=== PATIENT | male | born 1995 | race Caucasian/White ===

== ENCOUNTER 2020-05-29 13:38 | Observation (INO) | payer BC, OTHER ==
[2020-05-29] MEDS ORDERED: Sodium Chloride 0.9% 1,000 ML IV ONE ×2 (13:51→16:25)
[2020-05-29] MEDS ORDERED: Sodium Chloride 0.9% 2.5 ML Syringe FLUSH PRN (13:51)
[2020-05-29] MEDS ORDERED: Sodium Chloride 0.9% 10 ML Syringe FLUSH PRN (13:51)
--- NOTE | 2020-05-29 13:53 | EDM.PDOC ---
ED HPI GENERAL MEDICAL PROBLEM - General Chief Complaint: Abdominal Pain Stated Complaint: SHARP ABDOMINAL PAIN Time Seen by Provider: 05/29/20 13:48 Source of Information: Reports: Patient History Limitations: Reports: No Limitations - History of Present Illness INITIAL COMMENTS - FREE TEXT/NARRATIVE: HISTORY AND PHYSICAL: History of present illness: Patient is a 25-year-old male who presents to the emergency room with complaints of epigastric pain, bilateral flank pain, nausea and vomiting x 2 days. He states that his urine looks very dark in color and is concerned he is dehydrated due to the nausea and vomiting. Describes the epigastric pain as a sharp gnawing sensation which "if I had an ulcer this is what I think it would feel like". Patient denies any fever, chills, headache, change in vision, syncope or near syncope. Denies any chest pain, back pain, shortness of breath or cough. Denies any abdominal pain, nausea, vomiting, diarrhea, constipation or dysuria. Has not noted any blood in urine or stool. Patient has been eating and drinking appropriately. Review of systems: As per history of present illness and below otherwise all systems reviewed and negative. Past medical history: As per history of present illness and as reviewed below otherwise noncontributory. Surgical history: As per history of present illness and as reviewed below otherwise noncontributory. Social history: See social history for further information Family history: As per history of present illness and as reviewed below otherwise noncontributory. Physical exam: General: Well developed and well nourished. Alert and orientated x 3. Nontoxic in appearance and in no acute distress. Vital signs are stable and have been reviewed by me. Nursing notes were reviewed. HEENT: Atraumatic, normocephalic, pupils equal and reactive bilaterally, negative for conjunctival pallor or scleral icterus, mucous membranes moist, TMs normal bilaterally, throat clear, neck supple, nontender, trachea midline. No drooling or trismus noted. No meningeal signs. No hot potato voice noted. Lungs: Clear to auscultation, breath sounds equal bilaterally, chest nontender. Normal work of breathing, no accessory muscles used. Heart: S1S2, regular rate and rhythm without overt murmur Abdomen: Soft, nondistended, epigastric tenderness. Negative for masses or hepatosplenomegaly. Negative for costovertebral tenderness. Skin: Intact, warm, dry. No lesions or rashes noted. Hematologic: No petechiae or purpra. Mucosa appropriate color and normal nail bed color and refill. Extremities: Atraumatic, moves all extremities per self without difficulty or deficits, negative for cords or calf pain. Neurovascular unremarkable. Neuro: Awake, alert, oriented. Cranial nerves II through XII unremarkable. Cerebellum unremarkable. Motor and sensory unremarkable throughout. Exam nonfocal. Psychiatric: Mood and affect are appropriate. Normal thought process. Answering questions appropriately. Notes: Patient does have an elevated lipase and slight leukocytosis. CT of the abdomen and pelvis has been ordered, patient is aware and agreeable. He states he does have nausea and abdominal pain after the medications. We will give him some additional pain medication and fluids. CT shows stranding and edema adjacent to the pancreatic head and duodenum with mild duodenal wall thickening, which could represent pancreatitis with secondary duodenal and periduodenal inflammatory changes or primary duodenitis. Hepatic stenosis is noted. I have spoken with the patient/caregiver and discussed michelle rangel's findings, in addition to providing specific details for plan of care. Reassessment at the time of disposition demonstrates that the patient is in no acute distress, although he states he doesn't feel much better. Initially patient states he would like to be discharged home even though he is not feeling much better, I was able to talk him into staying for further care and management. Dr Jessica, hospitalist was consulted on this case. Agreed to monitor this patient for further care and management. VSS. Admission COVID pending. Diagnostics: CBC, CMP, Lipase, UA, CT abd/pelvis, COVID Therapeutics: IV fluids, Pepcid, GI cocktail, Dilaudid Impression: Pancreatitis, secondary duodenal and periduodenal inflammatory changes Plan: Observation admission to med/surg Definitive disposition and diagnosis as appropriate pending reevaluation and review of above. abd Pain Score (Numeric/FACES): 6 - Related Data Allergies Allergy/AdvReac Type Severity Reaction Status Date / Time No Known Allergies Allergy Verified 05/29/20 13:57 Home Meds: Home Meds Amphetamine/Dextroamphetamine [Adderall] 1 tab PO DAILY 05/29/20 [History] Omeprazole 20 mg PO DAILY 30 Days #30 tablet. 05/29/20 [Rx] Ondansetron [Zofran ODT] 4 mg PO Q6H PRN #8 tab.dis 05/29/20 [Rx] ED ROS GENERAL - Review of Systems Review Of Systems: Comprehensive ROS is negative, except as noted in HPI. ED EXAM, GI/ABD - Physical Exam Exam: See Below (See dictation) Course - Vital Signs Last Recorded V/S: Last Vital Signs Temp 95.0 F L 05/29/20 13:55 Pulse 101 H 05/29/20 16:11 Resp 16 05/29/20 16:11 BP 149/94 H 05/29/20 16:11 Pulse Ox 97 05/29/20 16:11 - Orders/Labs/Meds Orders: Active Orders 24 hr Category Date Time Status Admission Status [Patient Status] [ADT] Stat ADT 05/29/20 17:27 Active CORONAVIRUS COVID-19 PCR PHL Stat Lab 05/29/20 17:27 Ordered CULTURE URINE [RM] Stat Lab 05/29/20 13:50 Received LACTATE WITH REFLEX [BG] Stat Lab 05/29/20 17:26 Ordered Sodium Chloride 0.9% [Normal Saline] 1,000 ml Med 05/29/20 16:25 Active IV STAT Sodium Chloride 0.9% [Saline Flush] Med 05/29/20 13:51 Active 10 ml FLUSH ASDIRECTED PRN Sodium Chloride 0.9% [Saline Flush] Med 05/29/20 13:51 Active 2.5 ml FLUSH ASDIRECTED PRN Saline Lock Insert [OM.PC] Stat Oth 05/29/20 13:51 Ordered Medication Orders Sodium Chloride (Normal Saline) 1,000 mls @ 150 mls/hr IV STAT ONE Stop: 05/29/20 23:04 Sodium Chloride (Saline Flush) 10 ml FLUSH ASDIRECTED PRN PRN Reason: Keep Vein Open Last Admin: 05/29/20 14:55 Dose: 10 ml Documented by: [id number] Sodium Chloride (Saline Flush) 2.5 ml FLUSH ASDIRECTED PRN PRN Reason: Keep Vein Open Last Admin: 05/29/20 14:55 Dose: 2.5 ml Documented by: [email or web address] Labs: Laboratory Tests 05/29/20 05/29/20 05/29/20 Range/Units 13:50 14:45 14:45 WBC 12.71 H (4.0-11.0) K/uL RBC 5.96 H (4.50-5.90) M/uL Hgb 19.9 H (13.0-17.0) g/dL Hct 56.1 H (38.0-50.0) % MCV 94.1 (80.0-98.0) fL MCH 33.4 H (27.0-32.0) pg MCHC 35.5 (31.0-37.0) g/dL RDW Std Deviation 43.4 (28.0-62.0) fl RDW Coeff of Michael 13 (11.0-15.0) % Plt Count 148 L (150-400) K/uL MPV 11.80 (7.40-12.00) fL Neut % (Auto) 79.6 (48.0-80.0) % Lymph % (Auto) 12.7 L (16.0-40.0) % [place] % (Auto) 7.2 (0.0-15.0) % Eos % (Auto) 0.3 (0.0-7.0) % Baso % (Auto) 0.2 (0.0-1.5) % Neut # (Auto) 10.1 H (1.4-5.7) K/uL Lymph # (Auto) 1.6 (0.6-2.4) K/uL [place] # (Auto) 0.9 H (0.0-0.8) K/uL Eos # (Auto) 0.0 (0.0-0.7) K/uL Baso # (Auto) 0.0 (0.0-0.1) K/uL Nucleated RBC % 0.0 /100WBC Nucleated RBCs # 0 K/uL Sodium 135 L (136-148) mmol/L Potassium 4.0 (3.5-5.1) mmol/L Chloride 95 L (98-107) mmol/L Carbon Dioxide 28.5 (21.0-32.0) mmol/L BUN 8 (7.0-18.0) mg/dL Creatinine 1.1 (0.8-1.3) mg/dL Est Cr Clr Drug Dosing 99.32 mL/min Estimated GFR (MDRD) > 60.0 ml/min Glucose 101 (74-106) mg/dL Calcium 10.3 H (8.5-10.1) mg/dL Total Bilirubin 0.8 (0.2-1.0) mg/dL AST 97 H (15-37) IU/L ALT 121 H (14-63) IU/L Alkaline Phosphatase 191 H (46-116) U/L Total Protein 9.3 H (6.4-8.2) g/dL Albumin 5.1 H (3.4-5.0) g/dL Globulin 4.2 H (2.6-4.0) g/dL Albumin/Globulin Ratio 1.2 (0.9-1.6) Lipase 990 H (73-393) U/L Urine Color YELLOW Urine Appearance CLEAR Urine pH 7.0 (5.0-8.0) Ur Specific [place] 1.025 (1.001-1.035) Urine Protein 100 H (NEGATIVE) mg/dL Urine Glucose (UA) NEGATIVE (NEGATIVE) mg/dL Urine Ketones NEGATIVE (NEGATIVE) mg/dL Urine Occult Blood NEGATIVE (NEGATIVE) Urine Nitrite POSITIVE H (NEGATIVE) Urine Bilirubin SMALL H (NEGATIVE) Urine Ictotest NEGATIVE Urine Urobilinogen 0.2 (<2.0) EU/dL Ur Leukocyte Esterase TRACE H (NEGATIVE) Urine RBC 0-2 (0-2/HPF) Urine WBC 0-2 (0-5/HPF) Ur Epithelial Cells FEW (NONE-FEW) Urine Bacteria FEW (NEGATIVE) Urine Mucus MODERATE (NONE-MOD) Meds: Medications Generic Name Dose Route Start Last Admin Trade Name Freq PRN Reason Stop Dose Admin Sodium Chloride 1,000 mls @ 150 mls/hr 05/29/20 16:25 Normal Saline IV 05/29/20 23:04 STAT ONE Sodium Chloride 10 ml 05/29/20 13:51 05/29/20 14:55 Saline Flush FLUSH 10 ml ASDIRECTED PRN Administration Keep Vein Open Sodium Chloride 2.5 ml 05/29/20 13:51 05/29/20 14:55 Saline Flush FLUSH 2.5 ml ASDIRECTED PRN Administration Keep Vein Open Discontinued Medications Generic Name Dose Route Start Last Admin Trade Name Freq PRN Reason Stop Dose Admin Al Hydroxide/Mg Hydroxide 15 0 ml 05/29/20 14:17 05/29/20 14:55 ml/ Metoclopramide HCl 5 mg/ PO 05/29/20 14:18 25 each Lidocaine HCl 5 ml ONETIME ONE Administration Famotidine 20 mg 05/29/20 14:18 05/29/20 14:55 Pepcid IVPUSH 05/29/20 14:19 20 mg ONETIME ONE Administration Hydromorphone HCl 1 mg 05/29/20 15:30 05/29/20 16:08 Dilaudid IVPUSH 05/29/20 15:31 1 mg ONETIME ONE Administration Sodium Chloride 1,000 mls @ 999 mls/hr 05/29/20 13:51 05/29/20 14:54 Normal Saline IV 05/29/20 14:51 999 mls/hr STAT ONE Administration Ceftriaxone Sodium/Dextrose 1 50 mls @ 100 mls/hr 05/29/20 15:51 05/29/20 16:08 gm/ Premix IV 05/29/20 16:20 100 mls/hr ONETIME ONE Administration Iodixanol 100 ml 05/29/20 15:40 05/29/20 15:42 Visipaque IVPUSH 05/29/20 15:41 100 ml ONETIME ONE Administration Departure - Departure Time of Disposition: 17:31 Disposition: Refer to Observation Clinical Impression: Pancreatitis Qualifiers: Chronicity: acute Pancreatitis type: unspecified pancreatitis type Acute pancreatitis complication: unspecified Qualified Code(s): K85.90 - Acute pancreatitis without necrosis or infection, unspecified - Discharge Information Prescriptions: Omeprazole 20 mg PO DAILY 30 Days #30 tablet. Ondansetron [Zofran ODT] 4 mg PO Q6H PRN #8 tab.dis PRN Reason: Nausea Referrals: PCP,None [Primary Care Provider] - Forms: ED Department Discharge Sepsis Event Note (ED) - Focused Exam Vital Signs: Vital Signs Temp Pulse Resp BP Pulse Ox 05/29/20 16:11 101 H 16 149/94 H 97 05/29/20 14:59 80 16 148/101 H 97 05/29/20 13:55 95.0 F L 110 H 16 157/100 H 97 - My Orders Last 24 Hours: My Active Orders 05/29/20 13:50 CULTURE URINE [RM] Stat 05/29/20 13:51 Sodium Chloride 0.9% [Saline Flush] 10 ml FLUSH ASDIRECTED PRN Sodium Chloride 0.9% [Saline Flush] 2.5 ml FLUSH ASDIRECTED PRN Saline Lock Insert [OM.PC] Stat 05/29/20 16:25 Sodium Chloride 0.9% [Normal Saline] 1,000 ml IV STAT 05/29/20 17:26 LACTATE WITH REFLEX [BG] Stat 05/29/20 17:27 Admission Status [Patient Status] [ADT] Stat CORONAVIRUS COVID-19 PCR PHL Stat - Assessment/Plan Last 24 Hours: My Active Orders 05/29/20 13:50 CULTURE URINE [RM] Stat 05/29/20 13:51 Sodium Chloride 0.9% [Saline Flush] 10 ml FLUSH ASDIRECTED PRN Sodium Chloride 0.9% [Saline Flush] 2.5 ml FLUSH ASDIRECTED PRN Saline Lock Insert [OM.PC] Stat 05/29/20 16:25 Sodium Chloride 0.9% [Normal Saline] 1,000 ml IV STAT 05/29/20 17:26 LACTATE WITH REFLEX [BG] Stat 05/29/20 17:27 Admission Status [Patient Status] [ADT] Stat CORONAVIRUS COVID-19 PCR PHL Stat
[2020-05-29] MEDS ORDERED: Alum Hydrox/Mag Hydrox/Simeth 15 ML, Metoclopramide 5 MG, Lidocaine 2% 5 ML PO ONE ×3 (14:17)
[2020-05-29] MEDS ORDERED: Famotidine 20 MG/2 ML SDV IVPUSH ONE (14:18)
[2020-05-29 15:23] LABS: BLOOD UREA NITROGEN,BUN 8 mg/dL (7.0-18.0); CARBON DIOXIDE,CO2 28.5 mmol/L (21.0-32.0); CHLORIDE,CL 95 mmol/L (98-107); GLUCOSE RANDOM 101 mg/dL (74-106); LIPASE 990 U/L (73-393); SODIUM,NA 135 mmol/L (136-148)
[2020-05-29] MEDS ORDERED: HYDROmorphone 1 MG/ML Syringe IVPUSH ONE (15:30)
[2020-05-29] MEDS ORDERED: cefTRIAXone 1 GM in Premix Bag 1 BAG IV ONE (15:51)
--- NOTE | 2020-05-29 17:20 | CT ---
INDICATION: Epigastric pain. Leukocytosis TECHNIQUE: CT abdomen and pelvis acquired with IV contrast. 100 mL of Isovue 370 administered. COMPARISON: None available FINDINGS: Lower chest: Unremarkable. Liver: Hepatic steatosis. Spleen: Unremarkable. Pancreas: Stranding adjacent to the pancreatic head. Gallbladder and bile ducts: A moderately distended gallbladder. No biliary dilatation. Adrenal glands: Unremarkable. Kidneys: Unremarkable. GI tract: Periduodenal stranding and edema with transverse duodenal wall thickening. No bowel obstruction. A normal appendix. No significant pericolonic changes. Vascular structures: Unremarkable. Lymph nodes: Unremarkable. Miscellaneous: Small fluid adjacent to the proximal duodenum. No free air. Pelvic Organs: Unremarkable. Bones: Bilateral L5 spondylolysis. IMPRESSION: Stranding and edema adjacent to the pancreatic head and duodenum with mild duodenal wall thickening, which could represent pancreatitis with secondary duodenal and periduodenal inflammatory changes, or primary duodenitis. Correlate clinically and with pancreatic enzymes. Hepatic steatosis. Please note that all CT scans at this facility use dose modulation, iterative reconstruction, and/or weight-based dosing when appropriate to reduce radiation dose to as low as reasonably achievable. Dictated by Romario Long MD @ May 29 2020 5:06PM Signed by Dr. Romario Long @ May 29 2020 5:19PM
[2020-05-29] MEDS ORDERED: Albuterol/Ipratropium 3.0-0.5 MG/3 ML Neb Soln NEB PRN (17:55)
[2020-05-29] MEDS ORDERED: Morphine 10 MG/ML Syringe IVPUSH PRN (17:55)
[2020-05-29] MEDS: Pantoprazole 40 MG in Sodium Chloride 0.9% 10 ML IV SCH (19:23)
--- NOTE | 2020-05-29 19:38 | PCM.HP.2 ---
H&P History of Present Illness - General Date of Service: 05/29/20 Admit Problem/Dx: Admission Diagnosis/Problem Admission Diagnosis/Problem Pancreatitis - History of Present Illness Initial Comments - Free Text/Narative: Patient is a 25-year-old male who presents to the emergency room with complaints of sharp epigastric pain, bilateral flank pain, nausea and vomiting x 2 days. Patient states he is visiting from [place] for a vacation, and has been dining out everyday last few days. States he has been drinking alcohol last few days more than usual. Otherwise he doesn't abuse alcohol. He also had vomiting ,,7 times, he vomited all the food he ate last night. Has been feeling very weak. Pain isnt improving. He states that his urine looks very dark in color and is concerned he is dehydrated due to the nausea and vomiting. Patient denies any fever, chills, headache, change in vision, syncope or near syncope. Denies any chest pain, back pain, shortness of breath or cough. Denies any abdominal pain, nausea, vomiting, diarrhea, constipation or dysuria. Has not noted any blood in urine or stool. Patient has been eating and drinking appropriately. Patient was found to have elevated lipase, CT abdomen was significant for periduodenal and pancreatic head stranding and edema. Gall bladder was moderately distended, but no biliary dilatation. Patient is being admitted for pancreatitis. abd Pain Score (Numeric/FACES): 6 - Related Data Allergies/Adverse Reactions: Allergies Allergy/AdvReac Type Severity Reaction Status Date / Time No Known Allergies Allergy Verified 05/29/20 20:28 Home Medications: Home Meds Amphetamine/Dextroamphetamine [Adderall] 1 tab PO DAILY 05/29/20 [History] Omeprazole 20 mg PO DAILY 30 Days #30 tablet. 05/29/20 [Rx] Ondansetron [Zofran ODT] 4 mg PO Q6H PRN #8 tab.dis 05/29/20 [Rx] Social & Family History - Family History Family Medical History: Noncontributory H&P Review of Systems - Review of Systems: Review Of Systems: See Below General: Reports: Weakness. Denies: Fever, Chills, Malaise Pulmonary: Denies: Shortness of Breath, Wheezing Cardiovascular: Denies: Chest Pain, Palpitations, Dyspnea on Exertion Gastrointestinal: Reports: Abdominal Pain, Anorexia, Decreased Appetite, Flatus, Nausea, Vomiting. Denies: Black Stool, Bloody Stool, Constipation, Diarrhea, Difficulty Swallowing, Distension, Hematemesis Genitourinary: Denies: Dysuria, Frequency, Burning Musculoskeletal: Denies: Neck Pain, Shoulder Pain, Arm Pain Skin: Denies: Cyanosis, Jaundice, Mottled Psychiatric: Denies: Confusion, Depression, Mood Lability Exam - Exam Exam: See Below - Vital Signs Vital Signs: Last Vital Signs Temp 35.0 C L 05/29/20 13:55 Pulse 103 H 05/29/20 17:52 Resp 18 05/29/20 17:52 BP 149/94 H 05/29/20 16:11 Pulse Ox 97 05/29/20 17:52 Weight: 83.461 kg - Exam Quality Assessment: No: Supplemental Oxygen General: Alert, Oriented Neck: Supple, Trachea Midline Lungs: Clear to Auscultation, Rhonchi Cardiovascular: Regular Rate, Regular Rhythm, Normal S1, Normal S2 GI/Abdominal Exam: Normal Bowel Sounds, Soft, Guarding, Tender. No: Non-Tender, Mass, Hepatomegaly, Splenomegaly - Patient Data Lab Results Last 24 hrs: Laboratory Results - last 24 hr 05/29/20 05/29/20 05/29/20 Range/Units 13:50 14:45 14:45 WBC 12.71 H (4.0-11.0) K/uL RBC 5.96 H (4.50-5.90) M/uL Hgb 19.9 H (13.0-17.0) g/dL Hct 56.1 H (38.0-50.0) % MCV 94.1 (80.0-98.0) fL MCH 33.4 H (27.0-32.0) pg MCHC 35.5 (31.0-37.0) g/dL RDW Std Deviation 43.4 (28.0-62.0) fl RDW Coeff of Michael 13 (11.0-15.0) % Plt Count 148 L (150-400) K/uL MPV 11.80 (7.40-12.00) fL Neut % (Auto) 79.6 (48.0-80.0) % Lymph % (Auto) 12.7 L (16.0-40.0) % [place] % (Auto) 7.2 (0.0-15.0) % Eos % (Auto) 0.3 (0.0-7.0) % Baso % (Auto) 0.2 (0.0-1.5) % Neut # (Auto) 10.1 H (1.4-5.7) K/uL Lymph # (Auto) 1.6 (0.6-2.4) K/uL [place] # (Auto) 0.9 H (0.0-0.8) K/uL Eos # (Auto) 0.0 (0.0-0.7) K/uL Baso # (Auto) 0.0 (0.0-0.1) K/uL Nucleated RBC % 0.0 /100WBC Nucleated RBCs # 0 K/uL Lactate (0.20-2.00) mmol/L Sodium 135 L (136-148) mmol/L Potassium 4.0 (3.5-5.1) mmol/L Chloride 95 L (98-107) mmol/L Carbon Dioxide 28.5 (21.0-32.0) mmol/L BUN 8 (7.0-18.0) mg/dL Creatinine 1.1 (0.8-1.3) mg/dL Est Cr Clr Drug Dosing 99.32 mL/min Estimated GFR (MDRD) > 60.0 ml/min Glucose 101 (74-106) mg/dL Calcium 10.3 H (8.5-10.1) mg/dL Total Bilirubin 0.8 (0.2-1.0) mg/dL AST 97 H (15-37) IU/L ALT 121 H (14-63) IU/L Alkaline Phosphatase 191 H (46-116) U/L Total Protein 9.3 H (6.4-8.2) g/dL Albumin 5.1 H (3.4-5.0) g/dL Globulin 4.2 H (2.6-4.0) g/dL Albumin/Globulin Ratio 1.2 (0.9-1.6) Lipase 990 H (73-393) U/L Urine Color YELLOW Urine Appearance CLEAR Urine pH 7.0 (5.0-8.0) Ur Specific [place] 1.025 (1.001-1.035) Urine Protein 100 H (NEGATIVE) mg/dL Urine Glucose (UA) NEGATIVE (NEGATIVE) mg/dL Urine Ketones NEGATIVE (NEGATIVE) mg/dL Urine Occult Blood NEGATIVE (NEGATIVE) Urine Nitrite POSITIVE H (NEGATIVE) Urine Bilirubin SMALL H (NEGATIVE) Urine Ictotest NEGATIVE Urine Urobilinogen 0.2 (<2.0) EU/dL Ur Leukocyte Esterase TRACE H (NEGATIVE) Urine RBC 0-2 (0-2/HPF) Urine WBC 0-2 (0-5/HPF) Ur Epithelial Cells FEW (NONE-FEW) Urine Bacteria FEW (NEGATIVE) Urine Mucus MODERATE (NONE-MOD) SARS-CoV-2 RNA (JED) (NEGATIVE) 05/29/20 05/29/20 Range/Units 17:43 17:45 WBC (4.0-11.0) K/uL RBC (4.50-5.90) M/uL Hgb (13.0-17.0) g/dL Hct (38.0-50.0) % MCV (80.0-98.0) fL MCH (27.0-32.0) pg MCHC (31.0-37.0) g/dL RDW Std Deviation (28.0-62.0) fl RDW Coeff of Michael (11.0-15.0) % Plt Count (150-400) K/uL MPV (7.40-12.00) fL Neut % (Auto) (48.0-80.0) % Lymph % (Auto) (16.0-40.0) % [place] % (Auto) (0.0-15.0) % Eos % (Auto) (0.0-7.0) % Baso % (Auto) (0.0-1.5) % Neut # (Auto) (1.4-5.7) K/uL Lymph # (Auto) (0.6-2.4) K/uL [place] # (Auto) (0.0-0.8) K/uL Eos # (Auto) (0.0-0.7) K/uL Baso # (Auto) (0.0-0.1) K/uL Nucleated RBC % /100WBC Nucleated RBCs # K/uL Lactate 1.2 (0.20-2.00) mmol/L Sodium (136-148) mmol/L Potassium (3.5-5.1) mmol/L Chloride (98-107) mmol/L Carbon Dioxide (21.0-32.0) mmol/L BUN (7.0-18.0) mg/dL Creatinine (0.8-1.3) mg/dL Est Cr Clr Drug Dosing mL/min Estimated GFR (MDRD) ml/min Glucose (74-106) mg/dL Calcium (8.5-10.1) mg/dL Total Bilirubin (0.2-1.0) mg/dL AST (15-37) IU/L ALT (14-63) IU/L Alkaline Phosphatase (46-116) U/L Total Protein (6.4-8.2) g/dL Albumin (3.4-5.0) g/dL Globulin (2.6-4.0) g/dL Albumin/Globulin Ratio (0.9-1.6) Lipase (73-393) U/L Urine Color Urine Appearance Urine pH (5.0-8.0) Ur Specific [place] (1.001-1.035) Urine Protein (NEGATIVE) mg/dL Urine Glucose (UA) (NEGATIVE) mg/dL Urine Ketones (NEGATIVE) mg/dL Urine Occult Blood (NEGATIVE) Urine Nitrite (NEGATIVE) Urine Bilirubin (NEGATIVE) Urine Ictotest Urine Urobilinogen (<2.0) EU/dL Ur Leukocyte Esterase (NEGATIVE) Urine RBC (0-2/HPF) Urine WBC (0-5/HPF) Ur Epithelial Cells (NONE-FEW) Urine Bacteria (NEGATIVE) Urine Mucus (NONE-MOD) SARS-CoV-2 RNA (JED) NEGATIVE (NEGATIVE) Result Diagrams: 05/29/20 14:45 05/29/20 14:45 Sepsis Event Note - Evaluation Sepsis Screening Result: No Definite Risk - Focused Exam Vital Signs: Vital Signs Temp Pulse Resp BP Pulse Ox 05/29/20 17:52 103 H 18 97 05/29/20 16:11 101 H 16 149/94 H 97 05/29/20 14:59 80 16 148/101 H 97 05/29/20 13:55 35.0 C L 110 H 16 157/100 H 97 - Problem List (1) Pancreatitis SNOMED Code(s): 60400864 ICD Code: K85.90 - ACUTE PANCREATITIS WITHOUT NECROSIS OR INFECTION, UNSP Status: Acute Current Visit: Yes Qualifiers: Chronicity: acute Pancreatitis type: unspecified pancreatitis type Acute pancreatitis complication: unspecified Qualified Code(s): K85.90 - Acute pancreatitis without necrosis or infection, unspecified (2) Transaminitis SNOMED Code(s): 668618690, 798076491 ICD Code: R74.01 - ELEVATION OF LEVELS OF LIVER TRANSAMINASE LEVELS Status: Acute Current Visit: Yes Problem List Initiated/Reviewed/Updated: Yes Orders Last 24hrs: Active Orders 24 hr Category Date Time Status Admission Status [Patient Status] [ADT] Stat ADT 05/29/20 17:27 Active Ambulate [RC] ASDIRECTED Care 05/29/20 17:55 Active Antiembolic Devices [RC] PER UNIT ROUTINE Care 05/29/20 17:57 Active Blood Glucose Check, Bedside [RC] Q6H Care 05/29/20 17:55 Active Oxygen Therapy [RC] PRN Care 05/29/20 17:55 Active Pulse Oximetry [RC] PRN Care 05/29/20 17:56 Active RT Aerosol Therapy [RC] ASDIRECTED Care 05/29/20 17:58 Active VTE/DVT Education [RC] PER UNIT ROUTINE Care 05/29/20 17:55 Active Vital Signs [RC] Q4H Care 05/29/20 17:55 Active Nothing per Oral Now Diet [DIET] Diet 05/29/20 Dinner Active CBC WITH AUTO DIFF [HEME] AM Lab 05/30/20 05:11 Ordered CMP [COMPREHENSIVE METABOLIC PN,CMP] [CHEM] AM Lab 05/30/20 05:11 Ordered CULTURE URINE [RM] Stat Lab 05/29/20 13:50 Received HEPATITIS PANEL ACUTE [CHEM] AM Lab 05/31/20 05:11 Ordered MAGNESIUM [CHEM] AM Lab 05/30/20 05:11 Ordered PHOSPHORUS [CHEM] AM Lab 05/30/20 05:11 Ordered Albuterol/Ipratropium [DuoNeb 3.0-0.5 MG/3 ML] Med 05/29/20 17:55 Active 3 ml NEB Q4HRRT PRN Lactated Ringers [Ringers, Lactated] 1,000 ml Med 05/29/20 18:00 Active IV ASDIRECTED Morphine Med 05/29/20 17:55 Active 2 mg IVPUSH Q4H PRN Ondansetron [Zofran] Med 05/29/20 17:55 Active 4 mg IVPUSH Q4H PRN Pantoprazole [ProTONIX IV] 40 mg Med 05/29/20 18:00 Active Sodium Chloride 0.9% [Normal Saline] 10 ml IV DAILY Sodium Chloride 0.9% [Normal Saline] 1,000 ml Med 05/29/20 16:25 Active IV STAT Sodium Chloride 0.9% [Saline Flush] Med 05/29/20 13:51 Active 10 ml FLUSH ASDIRECTED PRN Sodium Chloride 0.9% [Saline Flush] Med 05/29/20 13:51 Active 2.5 ml FLUSH ASDIRECTED PRN cefTRIAXone [Rocephin] 1 gm Med 05/30/20 09:00 Active Sodium Chloride 0.9% [Normal Saline] 50 ml IV Q24H Saline Lock Insert [OM.PC] Stat Oth 05/29/20 13:51 Ordered Sequential Compression Device [OM.PC] Per Unit Routine Oth 05/29/20 17:56 Ordered Resuscitation Status Routine Resus Stat 05/29/20 17:55 Ordered Medication Orders Albuterol/Ipratropium (Duoneb 3.0-0.5 Mg/3 Ml) 3 ml NEB Q4HRRT PRN PRN Reason: Shortness Of Breath/wheezing Sodium Chloride (Normal Saline) 1,000 mls @ 150 mls/hr IV STAT ONE Stop: 05/29/20 23:04 Last Admin: 05/29/20 17:29 Dose: 150 mls/hr Documented by: PENG Lactated Ringer's (Ringers, Lactated) 1,000 mls @ 125 mls/hr IV ASDIRECTED TAMIE Pantoprazole Sodium 40 mg/ (Sodium Chloride) 10 mls @ 300 mls/hr IV DAILY TAMIE Last Admin: 05/29/20 19:23 Dose: 300 mls/hr Documented by: CARLITO Ceftriaxone Sodium 1 gm/ (Sodium Chloride) 50 mls @ 100 mls/hr IV Q24H TAMIE Morphine Sulfate (Morphine) 2 mg IVPUSH Q4H PRN PRN Reason: Pain (severe 7-10) Stop: 05/30/20 17:57 Last Admin: 05/29/20 19:31 Dose: 2 mg Documented by: CARLITO Ondansetron HCl (Zofran) 4 mg IVPUSH Q4H PRN PRN Reason: Nausea/Vomiting Sodium Chloride (Saline Flush) 10 ml FLUSH ASDIRECTED PRN PRN Reason: Keep Vein Open Last Admin: 05/29/20 14:55 Dose: 10 ml Documented by: SHARATH Sodium Chloride (Saline Flush) 2.5 ml FLUSH ASDIRECTED PRN PRN Reason: Keep Vein Open Last Admin: 05/29/20 14:55 Dose: 2.5 ml Documented by: SHARATH Assessment/Plan Comment:: 25 y/o male admitted for pancreatitis, likely due to alcohol binging start IV fluids Keep NPO, advance diet as tolerated BS q6H Dilaudid for pain control IV ppi daily Patient counseled against alcohol binging Trend LFTs, transaminitis likely due to Vomiting USG liver
[2020-05-29] MEDS: HYDROmorphone 1 MG/ML Syringe IVPUSH PRN (20:50)
[2020-05-29] MEDS: Ondansetron 4 MG/2 ML SDV IVPUSH PRN (21:25)
[2020-05-29] MEDS ORDERED: 50% Dextrose in Water 50 ML Syringe IVPUSH PRN (23:29)
[2020-05-30] MEDS: Lactated Ringers 1,000 ML IV SCH ×2 (00:29→09:34)
[2020-05-30] MEDS: HYDROmorphone 1 MG/ML Syringe IVPUSH PRN ×3 (01:15→09:40)
[2020-05-30 06:23] LABS: BLOOD UREA NITROGEN,BUN 8 mg/dL (7.0-18.0); CARBON DIOXIDE,CO2 27.4 mmol/L (21.0-32.0); CHLORIDE,CL 100 mmol/L (98-107); GLUCOSE RANDOM 84 mg/dL (74-106); LIPASE 836 U/L (73-393); POTASSIUM,K 3.7 mmol/L (3.5-5.1); SODIUM,NA 136 mmol/L (136-148)
[2020-05-30] MEDS ORDERED: cefTRIAXone 1 GM in Premix Bag 1 BAG IV SCH (09:00)
[2020-05-30] MEDS ORDERED: cefTRIAXone 1 GM in Sodium Chloride 0.9% 50 ML IV SCH (09:00)
[2020-05-30] MEDS: Pantoprazole 40 MG in Sodium Chloride 0.9% 10 ML IV SCH (09:04)
[2020-05-30] MEDS: Ondansetron 4 MG/2 ML SDV IVPUSH PRN (09:40)
--- NOTE | 2020-05-30 09:59 | US ---
INDICATION: Pancreatitis. COMPARISON: CT scan of the abdomen and pelvis dated 29 May 2020. FINDINGS: An abdominal ultrasound shows mild diffuse increased echogenicity of the liver. Normal liver size and contour. No focal liver lesions identified. No bile duct dilation with the common bile duct measuring 3 mm. Normal appearance of the gallbladder. No gallstones. Negative sonographic Wood sign. No abnormalities identified in the visualized portions of the pancreatic head and body, aorta, and right kidney. No right-sided hydronephrosis. IMPRESSION: 1. No gallstones. No bile duct dilation. 2. Probable diffuse fatty infiltration of the liver. Dictated by Johnny Meraz MD @ May 30 2020 9:54AM Signed by Dr. Johnny Meraz @ May 30 2020 9:58AM
[2020-05-30] MEDS ORDERED: Ketorolac 10 MG Tab PO PRN (11:02)
[2020-05-30] MEDS ORDERED: HYDROmorphone 1 MG/ML Syringe IVPUSH PRN (11:03)
--- NOTE | 2020-05-30 11:09 | PCM.PN ---
- General Info Date of Service: 05/30/20 Admission Dx/Problem (Free Text): Admission Diagnosis/Problem Admission Diagnosis/Problem Pancreatitis Subjective Update: feels much better, is hungry, wants to eat , requesting to be discharged today Functional Status: Reports: Pain Controlled - Review of Systems General: Denies: Fever, Weakness, Fatigue Pulmonary: Denies: Shortness of Breath, Pleuritic Chest Pain Cardiovascular: Denies: Chest Pain, Palpitations, Dyspnea on Exertion Gastrointestinal: Reports: Abdominal Pain (improved). Denies: Decreased Appetite, Diarrhea, Nausea, Vomiting Genitourinary: Denies: Dysuria, Frequency, Burning Musculoskeletal: Denies: Neck Pain, Shoulder Pain, Arm Pain Skin: Denies: Cyanosis, Jaundice, Mottled Neurological: Denies: Confusion, Dizziness, Headache - Patient Data Vitals - Most Recent: Last Vital Signs Temp 36.2 C 05/30/20 08:00 Pulse 77 05/30/20 08:00 Resp 16 05/30/20 08:00 BP 142/82 H 05/30/20 08:00 Pulse Ox 98 05/30/20 08:00 Weight - Most Recent: 83.461 kg I&O - Last 24 Hours: Intake & Output 05/29/20 05/30/20 05/30/20 22:59 06:59 14:59 Intake Total 1649 Output Total 200 Balance 1449 Lab Results Last 24 Hours: Laboratory Results - last 24 hr 05/29/20 05/29/20 05/29/20 Range/Units 13:50 14:45 14:45 WBC 12.71 H (4.0-11.0) K/uL RBC 5.96 H (4.50-5.90) M/uL Hgb 19.9 H (13.0-17.0) g/dL Hct 56.1 H (38.0-50.0) % MCV 94.1 (80.0-98.0) fL MCH 33.4 H (27.0-32.0) pg MCHC 35.5 (31.0-37.0) g/dL RDW Std Deviation 43.4 (28.0-62.0) fl RDW Coeff of Michael 13 (11.0-15.0) % Plt Count 148 L (150-400) K/uL MPV 11.80 (7.40-12.00) fL Neut % (Auto) 79.6 (48.0-80.0) % Lymph % (Auto) 12.7 L (16.0-40.0) % [place] % (Auto) 7.2 (0.0-15.0) % Eos % (Auto) 0.3 (0.0-7.0) % Baso % (Auto) 0.2 (0.0-1.5) % Neut # (Auto) 10.1 H (1.4-5.7) K/uL Lymph # (Auto) 1.6 (0.6-2.4) K/uL [place] # (Auto) 0.9 H (0.0-0.8) K/uL Eos # (Auto) 0.0 (0.0-0.7) K/uL Baso # (Auto) 0.0 (0.0-0.1) K/uL Nucleated RBC % 0.0 /100WBC Nucleated RBCs # 0 K/uL Lactate (0.20-2.00) mmol/L Sodium 135 L (136-148) mmol/L Potassium 4.0 (3.5-5.1) mmol/L Chloride 95 L (98-107) mmol/L Carbon Dioxide 28.5 (21.0-32.0) mmol/L BUN 8 (7.0-18.0) mg/dL Creatinine 1.1 (0.8-1.3) mg/dL Est Cr Clr Drug Dosing 99.32 mL/min Estimated GFR (MDRD) > 60.0 ml/min Glucose 101 (74-106) mg/dL POC Glucose (60-110) mg/dL Calcium 10.3 H (8.5-10.1) mg/dL Phosphorus (2.6-4.7) mg/dL Magnesium (1.8-2.4) mg/dL Total Bilirubin 0.8 (0.2-1.0) mg/dL AST 97 H (15-37) IU/L ALT 121 H (14-63) IU/L Alkaline Phosphatase 191 H (46-116) U/L Total Protein 9.3 H (6.4-8.2) g/dL Albumin 5.1 H (3.4-5.0) g/dL Globulin 4.2 H (2.6-4.0) g/dL Albumin/Globulin Ratio 1.2 (0.9-1.6) Lipase 990 H (73-393) U/L Urine Color YELLOW Urine Appearance CLEAR Urine pH 7.0 (5.0-8.0) Ur Specific [place] 1.025 (1.001-1.035) Urine Protein 100 H (NEGATIVE) mg/dL Urine Glucose (UA) NEGATIVE (NEGATIVE) mg/dL Urine Ketones NEGATIVE (NEGATIVE) mg/dL Urine Occult Blood NEGATIVE (NEGATIVE) Urine Nitrite POSITIVE H (NEGATIVE) Urine Bilirubin SMALL H (NEGATIVE) Urine Ictotest NEGATIVE Urine Urobilinogen 0.2 (<2.0) EU/dL Ur Leukocyte Esterase TRACE H (NEGATIVE) Urine RBC 0-2 (0-2/HPF) Urine WBC 0-2 (0-5/HPF) Ur Epithelial Cells FEW (NONE-FEW) Urine Bacteria FEW (NEGATIVE) Urine Mucus MODERATE (NONE-MOD) SARS-CoV-2 RNA (JED) (NEGATIVE) 05/29/20 05/29/20 05/29/20 Range/Units 17:43 17:45 20:58 WBC (4.0-11.0) K/uL RBC (4.50-5.90) M/uL Hgb (13.0-17.0) g/dL Hct (38.0-50.0) % MCV (80.0-98.0) fL MCH (27.0-32.0) pg MCHC (31.0-37.0) g/dL RDW Std Deviation (28.0-62.0) fl RDW Coeff of Michael (11.0-15.0) % Plt Count (150-400) K/uL MPV (7.40-12.00) fL Neut % (Auto) (48.0-80.0) % Lymph % (Auto) (16.0-40.0) % [place] % (Auto) (0.0-15.0) % Eos % (Auto) (0.0-7.0) % Baso % (Auto) (0.0-1.5) % Neut # (Auto) (1.4-5.7) K/uL Lymph # (Auto) (0.6-2.4) K/uL [place] # (Auto) (0.0-0.8) K/uL Eos # (Auto) (0.0-0.7) K/uL Baso # (Auto) (0.0-0.1) K/uL Nucleated RBC % /100WBC Nucleated RBCs # K/uL Lactate 1.2 (0.20-2.00) mmol/L Sodium (136-148) mmol/L Potassium (3.5-5.1) mmol/L Chloride (98-107) mmol/L Carbon Dioxide (21.0-32.0) mmol/L BUN (7.0-18.0) mg/dL Creatinine (0.8-1.3) mg/dL Est Cr Clr Drug Dosing mL/min Estimated GFR (MDRD) ml/min Glucose (74-106) mg/dL POC Glucose 82 (60-110) mg/dL Calcium (8.5-10.1) mg/dL Phosphorus (2.6-4.7) mg/dL Magnesium (1.8-2.4) mg/dL Total Bilirubin (0.2-1.0) mg/dL AST (15-37) IU/L ALT (14-63) IU/L Alkaline Phosphatase (46-116) U/L Total Protein (6.4-8.2) g/dL Albumin (3.4-5.0) g/dL Globulin (2.6-4.0) g/dL Albumin/Globulin Ratio (0.9-1.6) Lipase (73-393) U/L Urine Color Urine Appearance Urine pH (5.0-8.0) Ur Specific [place] (1.001-1.035) Urine Protein (NEGATIVE) mg/dL Urine Glucose (UA) (NEGATIVE) mg/dL Urine Ketones (NEGATIVE) mg/dL Urine Occult Blood (NEGATIVE) Urine Nitrite (NEGATIVE) Urine Bilirubin (NEGATIVE) Urine Ictotest Urine Urobilinogen (<2.0) EU/dL Ur Leukocyte Esterase (NEGATIVE) Urine RBC (0-2/HPF) Urine WBC (0-5/HPF) Ur Epithelial Cells (NONE-FEW) Urine Bacteria (NEGATIVE) Urine Mucus (NONE-MOD) SARS-CoV-2 RNA (JED) NEGATIVE (NEGATIVE) 05/30/20 05/30/20 05/30/20 Range/Units 03:33 04:23 05:21 WBC 7.18 (4.0-11.0) K/uL RBC 5.06 (4.50-5.90) M/uL Hgb 16.4 (13.0-17.0) g/dL Hct 47.8 (38.0-50.0) % MCV 94.5 (80.0-98.0) fL MCH 32.4 H (27.0-32.0) pg MCHC 34.3 (31.0-37.0) g/dL RDW Std Deviation 43.5 (28.0-62.0) fl RDW Coeff of Michael 13 (11.0-15.0) % Plt Count 118 L (150-400) K/uL MPV 11.70 (7.40-12.00) fL Neut % (Auto) 65.2 (48.0-80.0) % Lymph % (Auto) 24.8 (16.0-40.0) % [place] % (Auto) 8.5 (0.0-15.0) % Eos % (Auto) 1.4 (0.0-7.0) % Baso % (Auto) 0.1 (0.0-1.5) % Neut # (Auto) 4.7 (1.4-5.7) K/uL Lymph # (Auto) 1.8 (0.6-2.4) K/uL [place] # (Auto) 0.6 (0.0-0.8) K/uL Eos # (Auto) 0.1 (0.0-0.7) K/uL Baso # (Auto) 0.0 (0.0-0.1) K/uL Nucleated RBC % 0.0 /100WBC Nucleated RBCs # 0 K/uL Lactate (0.20-2.00) mmol/L Sodium (136-148) mmol/L Potassium (3.5-5.1) mmol/L Chloride (98-107) mmol/L Carbon Dioxide (21.0-32.0) mmol/L BUN (7.0-18.0) mg/dL Creatinine (0.8-1.3) mg/dL Est Cr Clr Drug Dosing mL/min Estimated GFR (MDRD) ml/min Glucose (74-106) mg/dL POC Glucose 77 122 H (60-110) mg/dL Calcium (8.5-10.1) mg/dL Phosphorus (2.6-4.7) mg/dL Magnesium (1.8-2.4) mg/dL Total Bilirubin (0.2-1.0) mg/dL AST (15-37) IU/L ALT (14-63) IU/L Alkaline Phosphatase (46-116) U/L Total Protein (6.4-8.2) g/dL Albumin (3.4-5.0) g/dL Globulin (2.6-4.0) g/dL Albumin/Globulin Ratio (0.9-1.6) Lipase (73-393) U/L Urine Color Urine Appearance Urine pH (5.0-8.0) Ur Specific [place] (1.001-1.035) Urine Protein (NEGATIVE) mg/dL Urine Glucose (UA) (NEGATIVE) mg/dL Urine Ketones (NEGATIVE) mg/dL Urine Occult Blood (NEGATIVE) Urine Nitrite (NEGATIVE) Urine Bilirubin (NEGATIVE) Urine Ictotest Urine Urobilinogen (<2.0) EU/dL Ur Leukocyte Esterase (NEGATIVE) Urine RBC (0-2/HPF) Urine WBC (0-5/HPF) Ur Epithelial Cells (NONE-FEW) Urine Bacteria (NEGATIVE) Urine Mucus (NONE-MOD) SARS-CoV-2 RNA (JED) (NEGATIVE) 05/30/20 05/30/20 Range/Units 05:21 09:28 WBC (4.0-11.0) K/uL RBC (4.50-5.90) M/uL Hgb (13.0-17.0) g/dL Hct (38.0-50.0) % MCV (80.0-98.0) fL MCH (27.0-32.0) pg MCHC (31.0-37.0) g/dL RDW Std Deviation (28.0-62.0) fl RDW Coeff of Michael (11.0-15.0) % Plt Count (150-400) K/uL MPV (7.40-12.00) fL Neut % (Auto) (48.0-80.0) % Lymph % (Auto) (16.0-40.0) % [place] % (Auto) (0.0-15.0) % Eos % (Auto) (0.0-7.0) % Baso % (Auto) (0.0-1.5) % Neut # (Auto) (1.4-5.7) K/uL Lymph # (Auto) (0.6-2.4) K/uL [place] # (Auto) (0.0-0.8) K/uL Eos # (Auto) (0.0-0.7) K/uL Baso # (Auto) (0.0-0.1) K/uL Nucleated RBC % /100WBC Nucleated RBCs # K/uL Lactate (0.20-2.00) mmol/L Sodium 136 (136-148) mmol/L Potassium 3.7 (3.5-5.1) mmol/L Chloride 100 (98-107) mmol/L Carbon Dioxide 27.4 (21.0-32.0) mmol/L BUN 8 (7.0-18.0) mg/dL Creatinine 1.0 (0.8-1.3) mg/dL Est Cr Clr Drug Dosing 109.65 mL/min Estimated GFR (MDRD) > 60.0 ml/min Glucose 84 (74-106) mg/dL POC Glucose 80 (60-110) mg/dL Calcium 9.2 (8.5-10.1) mg/dL Phosphorus 2.8 (2.6-4.7) mg/dL Magnesium 1.9 (1.8-2.4) mg/dL Total Bilirubin 0.8 (0.2-1.0) mg/dL AST 44 H (15-37) IU/L ALT 76 H (14-63) IU/L Alkaline Phosphatase 150 H (46-116) U/L Total Protein 7.2 (6.4-8.2) g/dL Albumin 4.0 (3.4-5.0) g/dL Globulin 3.2 (2.6-4.0) g/dL Albumin/Globulin Ratio 1.3 (0.9-1.6) Lipase 836 H (73-393) U/L Urine Color Urine Appearance Urine pH (5.0-8.0) Ur Specific [place] (1.001-1.035) Urine Protein (NEGATIVE) mg/dL Urine Glucose (UA) (NEGATIVE) mg/dL Urine Ketones (NEGATIVE) mg/dL Urine Occult Blood (NEGATIVE) Urine Nitrite (NEGATIVE) Urine Bilirubin (NEGATIVE) Urine Ictotest Urine Urobilinogen (<2.0) EU/dL Ur Leukocyte Esterase (NEGATIVE) Urine RBC (0-2/HPF) Urine WBC (0-5/HPF) Ur Epithelial Cells (NONE-FEW) Urine Bacteria (NEGATIVE) Urine Mucus (NONE-MOD) SARS-CoV-2 RNA (JED) (NEGATIVE) Med Orders - Current: Current Medications Albuterol/Ipratropium (Duoneb 3.0-0.5 Mg/3 Ml) 3 ml NEB Q4HRRT PRN PRN Reason: Shortness Of Breath/wheezing Dextrose/Water (Dextrose 50% In Water) 50 ml IVPUSH ONETIME PRN PRN Reason: Hypoglycemia Last Admin: 05/30/20 03:52 Dose: 50 ml Documented by: Hydromorphone HCl (Dilaudid) 1 mg IVPUSH Q6H PRN PRN Reason: Pain Lactated Ringer's (Ringers, Lactated) 1,000 mls @ 125 mls/hr IV ASDIRECTED [facility] Last Admin: 05/30/20 09:34 Dose: 125 mls/hr Documented by: Pantoprazole Sodium 40 mg/ (Sodium Chloride) 10 mls @ 300 mls/hr IV DAILY [facility] Last Admin: 05/30/20 09:04 Dose: 300 mls/hr Documented by: Ceftriaxone Sodium/Dextrose 1 (gm/ Premix) 50 mls @ 100 mls/hr IV Q24H TAMIE Last Admin: 05/30/20 09:04 Dose: 100 mls/hr Documented by: Ketorolac Tromethamine (Toradol) 10 mg PO Q6H PRN PRN Reason: Abdominal Pain Stop: 06/04/20 11:03 Non-Formulary Medication (Amphetamine/Dextroamphetamine [Adderall]) 1 tab PO DAILY [facility] Ondansetron HCl (Zofran) 4 mg IVPUSH Q4H PRN PRN Reason: Nausea/Vomiting Last Admin: 05/30/20 09:40 Dose: 4 mg Documented by: Sodium Chloride (Saline Flush) 10 ml FLUSH ASDIRECTED PRN PRN Reason: Keep Vein Open Last Admin: 05/29/20 14:55 Dose: 10 ml Documented by: Sodium Chloride (Saline Flush) 2.5 ml FLUSH ASDIRECTED PRN PRN Reason: Keep Vein Open Last Admin: 05/29/20 14:55 Dose: 2.5 ml Documented by: Discontinued Medications Al Hydroxide/Mg Hydroxide 15 ml/ Metoclopramide HCl 5 mg/Lidocaine HCl 5 ml 0 ml PO ONETIME ONE Stop: 05/29/20 14:18 Last Admin: 05/29/20 14:55 Dose: 25 each Documented by: Famotidine (Pepcid) 20 mg IVPUSH ONETIME ONE Stop: 05/29/20 14:19 Last Admin: 05/29/20 14:55 Dose: 20 mg Documented by: Hydromorphone HCl (Dilaudid) 1 mg IVPUSH ONETIME ONE Stop: 05/29/20 15:31 Last Admin: 05/29/20 16:08 Dose: 1 mg Documented by: Hydromorphone HCl (Dilaudid) 1 mg IVPUSH Q4H PRN PRN Reason: Pain Last Admin: 05/30/20 09:40 Dose: 1 mg Documented by: Sodium Chloride (Normal Saline) 1,000 mls @ 999 mls/hr IV STAT ONE Stop: 05/29/20 14:51 Last Admin: 05/29/20 14:54 Dose: 999 mls/hr Documented by: Ceftriaxone Sodium/Dextrose 1 (gm/ Premix) 50 mls @ 100 mls/hr IV ONETIME ONE Stop: 05/29/20 16:20 Last Admin: 05/29/20 16:08 Dose: 100 mls/hr Documented by: Sodium Chloride (Normal Saline) 1,000 mls @ 150 mls/hr IV STAT ONE Stop: 05/29/20 23:04 Last Admin: 05/29/20 17:29 Dose: 150 mls/hr Documented by: Ceftriaxone Sodium 1 gm/ (Sodium Chloride) 50 mls @ 100 mls/hr IV Q24H TAMIE Iodixanol (Visipaque) 100 ml IVPUSH ONETIME ONE Stop: 05/29/20 15:41 Last Admin: 05/29/20 15:42 Dose: 100 ml Documented by: Morphine Sulfate (Morphine) 2 mg IVPUSH Q4H PRN PRN Reason: Pain (severe 7-10) Stop: 05/30/20 17:57 Last Admin: 05/29/20 19:31 Dose: 2 mg Documented by: - Exam General: Alert, Oriented Neck: Supple, Trachea Midline Lungs: Clear to Auscultation, Normal Respiratory Effort GI/Abdominal Exam: Normal Bowel Sounds, Soft, Non-Tender Sepsis Event Note - Evaluation Sepsis Screening Result: No Definite Risk - Focused Exam Vital Signs: Vital Signs Temp Pulse Resp BP Pulse Ox 05/30/20 08:00 36.2 C 77 16 142/82 H 98 05/30/20 03:52 36.2 C 91 18 143/85 H 96 05/29/20 23:24 36.3 C 91 18 164/93 H 96 - Problem List & Annotations (1) Pancreatitis SNOMED Code(s): 04359545 Code(s): K85.90 - ACUTE PANCREATITIS WITHOUT NECROSIS OR INFECTION, UNSP Status: Acute Current Visit: Yes Qualifiers: Chronicity: acute Pancreatitis type: unspecified pancreatitis type Acute pancreatitis complication: unspecified Qualified Code(s): K85.90 - Acute pancreatitis without necrosis or infection, unspecified (2) Transaminitis SNOMED Code(s): 502761401, 606562189 Code(s): R74.01 - ELEVATION OF LEVELS OF LIVER TRANSAMINASE LEVELS Status: Acute Current Visit: Yes - Problem List Review Problem List Initiated/Reviewed/Updated: Yes - My Orders Last 24 Hours: My Active Orders 05/29/20 Dinner Nothing per Oral Now Diet [DIET] 05/29/20 17:55 Ambulate [RC] ASDIRECTED Blood Glucose Check, Bedside [RC] Q6H Oxygen Therapy [RC] PRN VTE/DVT Education [RC] PER UNIT ROUTINE Vital Signs [RC] Q4H Albuterol/Ipratropium [DuoNeb 3.0-0.5 MG/3 ML] 3 ml NEB Q4HRRT PRN Ondansetron [Zofran] 4 mg IVPUSH Q4H PRN Resuscitation Status Routine 05/29/20 17:56 Pulse Oximetry [RC] PRN Sequential Compression Device [OM.PC] Per Unit Routine 05/29/20 17:57 Antiembolic Devices [RC] PER UNIT ROUTINE 05/29/20 17:58 RT Aerosol Therapy [RC] ASDIRECTED 05/29/20 18:00 Lactated Ringers [Ringers, Lactated] 1,000 ml IV ASDIRECTED Pantoprazole [ProTONIX IV] 40 mg Sodium Chloride 0.9% [Normal Saline] 10 ml IV DAILY 05/29/20 23:29 Dextrose 50% in Water 50 ml IVPUSH ONETIME PRN 05/30/20 09:00 cefTRIAXone [Rocephin in Dextrose,Iso-Osm 1 GM/50 ML] 1 gm Premix Bag 1 bag IV Q24H 05/30/20 11:02 Ketorolac [Toradol] 10 mg PO Q6H PRN 05/30/20 11:03 HYDROmorphone [Dilaudid] 1 mg IVPUSH Q6H PRN 05/30/20 Dinner Clear Liquid Diet [DIET] 05/31/20 05:11 HEPATITIS PANEL ACUTE [CHEM] AM 05/31/20 09:00 Amphetamine/Dextroamphetamine [Adderall] 1 tab PO DAILY - Plan Plan:: 25 y/o male admitted for pancreatitis, likely due to alcohol binging cont IV fluids start clear diet, advance diet as tolerated cont Dilaudid for pain control, add Toradol to wean off Dilaudid IV ppi daily Patient counseled against alcohol binging, Transaminitis likely due to Vomiting, improving USG liver noted
--- NOTE | 2020-05-30 14:59 | PCM.DCSUM1 ---
Discharge Summary - Hospital Course Free Text/Narrative:: Patient is a 25-year-old male who presents to the emergency room with complaints of sharp epigastric pain, bilateral flank pain, nausea and vomiting x 2 days. Patient states he is visiting from [place] for a vacation, and has been dining out everyday last few days. States he has been drinking alcohol last few days more than usual. Otherwise he doesn't abuse alcohol. He also had vomiting ,,7 times, he vomited all the food he ate last night. Has been feeling very weak. Pain isnt improving. He states that his urine looks very dark in color and is concerned he is dehydrated due to the nausea and vomiting. Patient denies any fever, chills, headache, change in vision, syncope or near syncope. Denies any chest pain, back pain, shortness of breath or cough. Denies any abdominal pain, nausea, vomiting, diarrhea, constipation or dysuria. Has not noted any blood in urine or stool. Patient has been eating and drinking appropriately. Patient was found to have elevated lipase, CT abdomen was significant for periduodenal and pancreatic head stranding and edema. Gall bladder was moderately distended, but no biliary dilatation. Patient is being admitted for pancreatitis. Patient was kept NPO, received IV fluids, IV Dilaudid for pain, IV PPI. Patients pain , n/v imporved, no fevers overnight. US liver showed fatty liver, transaminitis improved next day, patient was started on clear diet next day, which he tolerated well. Patient requested to be discharged home, was medically stable for dc and recommended to abstain from alcohol katlin drinking. - Discharge Data Discharge Date: 05/30/20 Discharge Disposition: Home, Self-Care 01 Condition: Fair - Referral to Home Health Primary Care Physician: PCP None - Discharge Diagnosis/Problem(s) (1) Pancreatitis SNOMED Code(s): 66939940 ICD Code: K85.90 - ACUTE PANCREATITIS WITHOUT NECROSIS OR INFECTION, UNSP Status: Acute Current Visit: Yes Qualifiers: Chronicity: acute Pancreatitis type: unspecified pancreatitis type Acute pancreatitis complication: unspecified Qualified Code(s): K85.90 - Acute pancreatitis without necrosis or infection, unspecified (2) Transaminitis SNOMED Code(s): 678956015, 887015725 ICD Code: R74.01 - ELEVATION OF LEVELS OF LIVER TRANSAMINASE LEVELS Status: Acute Current Visit: Yes - Patient Instructions Diet: GI Soft/Low Residue/Low Fiber Activity: As Tolerated Driving: May Drive Today Showering/Bathing: May Shower Notify Provider of: Fever, Increased Pain, Swelling and Redness, Drainage, Nausea and/or Vomiting - Discharge Plan *PRESCRIPTION DRUG MONITORING PROGRAM REVIEWED*: No *COPY OF PRESCRIPTION DRUG MONITORING REPORT IN PATIENT AISHA: No Prescriptions/Med Rec: Omeprazole 20 mg PO DAILY 30 Days #30 tablet. Ketorolac [Toradol] 10 mg PO Q8H PRN #5 tablet PRN Reason: Abdominal Pain Ondansetron [Zofran ODT] 4 mg PO Q6H PRN #8 tab.dis PRN Reason: Nausea Home Medications: Home Meds Amphetamine/Dextroamphetamine [Adderall] 1 tab PO DAILY 05/29/20 [History] Omeprazole 20 mg PO DAILY 30 Days #30 tablet. 05/29/20 [Rx] Ondansetron [Zofran ODT] 4 mg PO Q6H PRN #8 tab.dis 05/29/20 [Rx] Ketorolac [Toradol] 10 mg PO Q8H PRN #5 tablet 05/30/20 [Rx] Forms: ED Department Discharge Referrals: PCP,None [Primary Care Provider] - - Discharge Summary/Plan Comment DC Time >30 min.: No - Patient Data Vitals - Most Recent: Last Vital Signs Temp 36.4 C 05/30/20 12:00 Pulse 92 05/30/20 12:00 Resp 18 05/30/20 12:00 BP 147/86 H 05/30/20 12:00 Pulse Ox 98 05/30/20 12:00 Weight - Most Recent: 83.461 kg I&O - Last 24 hours: Intake & Output 05/29/20 05/30/20 05/30/20 22:59 06:59 14:59 Intake Total 1649 Output Total 200 Balance 1449 Lab Results - Last 24 hrs: Laboratory Results - last 24 hr 05/29/20 05/29/20 05/29/20 Range/Units 14:45 14:45 17:43 WBC 12.71 H (4.0-11.0) K/uL RBC 5.96 H (4.50-5.90) M/uL Hgb 19.9 H (13.0-17.0) g/dL Hct 56.1 H (38.0-50.0) % MCV 94.1 (80.0-98.0) fL MCH 33.4 H (27.0-32.0) pg MCHC 35.5 (31.0-37.0) g/dL RDW Std Deviation 43.4 (28.0-62.0) fl RDW Coeff of Michael 13 (11.0-15.0) % Plt Count 148 L (150-400) K/uL MPV 11.80 (7.40-12.00) fL Neut % (Auto) 79.6 (48.0-80.0) % Lymph % (Auto) 12.7 L (16.0-40.0) % Benton % (Auto) 7.2 (0.0-15.0) % Eos % (Auto) 0.3 (0.0-7.0) % Baso % (Auto) 0.2 (0.0-1.5) % Neut # (Auto) 10.1 H (1.4-5.7) K/uL Lymph # (Auto) 1.6 (0.6-2.4) K/uL Benton # (Auto) 0.9 H (0.0-0.8) K/uL Eos # (Auto) 0.0 (0.0-0.7) K/uL Baso # (Auto) 0.0 (0.0-0.1) K/uL Nucleated RBC % 0.0 /100WBC Nucleated RBCs # 0 K/uL Lactate 1.2 (0.20-2.00) mmol/L Sodium 135 L (136-148) mmol/L Potassium 4.0 (3.5-5.1) mmol/L Chloride 95 L (98-107) mmol/L Carbon Dioxide 28.5 (21.0-32.0) mmol/L BUN 8 (7.0-18.0) mg/dL Creatinine 1.1 (0.8-1.3) mg/dL Est Cr Clr Drug Dosing 99.32 mL/min Estimated GFR (MDRD) > 60.0 ml/min Glucose 101 (74-106) mg/dL POC Glucose (60-110) mg/dL Hemoglobin A1c (4.5-6.2) % Calcium 10.3 H (8.5-10.1) mg/dL Phosphorus (2.6-4.7) mg/dL Magnesium (1.8-2.4) mg/dL Total Bilirubin 0.8 (0.2-1.0) mg/dL AST 97 H (15-37) IU/L ALT 121 H (14-63) IU/L Alkaline Phosphatase 191 H (46-116) U/L Total Protein 9.3 H (6.4-8.2) g/dL Albumin 5.1 H (3.4-5.0) g/dL Globulin 4.2 H (2.6-4.0) g/dL Albumin/Globulin Ratio 1.2 (0.9-1.6) Triglycerides (0-200) mg/dL Cholesterol (50-200) mg/dL LDL Cholesterol, Calc (60-180) mg/dL VLDL Cholesterol (5-55) mg/dL HDL Cholesterol (40-60) mg/dL Cholesterol/HDL Ratio (3.3-6.0) Lipase 990 H (73-393) U/L TSH 3rd Generation (0.36-3.74) uIU/mL SARS-CoV-2 RNA (JED) (NEGATIVE) 05/29/20 05/29/20 05/30/20 Range/Units 17:45 20:58 03:33 WBC (4.0-11.0) K/uL RBC (4.50-5.90) M/uL Hgb (13.0-17.0) g/dL Hct (38.0-50.0) % MCV (80.0-98.0) fL MCH (27.0-32.0) pg MCHC (31.0-37.0) g/dL RDW Std Deviation (28.0-62.0) fl RDW Coeff of Michael (11.0-15.0) % Plt Count (150-400) K/uL MPV (7.40-12.00) fL Neut % (Auto) (48.0-80.0) % Lymph % (Auto) (16.0-40.0) % Benton % (Auto) (0.0-15.0) % Eos % (Auto) (0.0-7.0) % Baso % (Auto) (0.0-1.5) % Neut # (Auto) (1.4-5.7) K/uL Lymph # (Auto) (0.6-2.4) K/uL Benton # (Auto) (0.0-0.8) K/uL Eos # (Auto) (0.0-0.7) K/uL Baso # (Auto) (0.0-0.1) K/uL Nucleated RBC % /100WBC Nucleated RBCs # K/uL Lactate (0.20-2.00) mmol/L Sodium (136-148) mmol/L Potassium (3.5-5.1) mmol/L Chloride (98-107) mmol/L Carbon Dioxide (21.0-32.0) mmol/L BUN (7.0-18.0) mg/dL Creatinine (0.8-1.3) mg/dL Est Cr Clr Drug Dosing mL/min Estimated GFR (MDRD) ml/min Glucose (74-106) mg/dL POC Glucose 82 77 (60-110) mg/dL Hemoglobin A1c (4.5-6.2) % Calcium (8.5-10.1) mg/dL Phosphorus (2.6-4.7) mg/dL Magnesium (1.8-2.4) mg/dL Total Bilirubin (0.2-1.0) mg/dL AST (15-37) IU/L ALT (14-63) IU/L Alkaline Phosphatase (46-116) U/L Total Protein (6.4-8.2) g/dL Albumin (3.4-5.0) g/dL Globulin (2.6-4.0) g/dL Albumin/Globulin Ratio (0.9-1.6) Triglycerides (0-200) mg/dL Cholesterol (50-200) mg/dL LDL Cholesterol, Calc (60-180) mg/dL VLDL Cholesterol (5-55) mg/dL HDL Cholesterol (40-60) mg/dL Cholesterol/HDL Ratio (3.3-6.0) Lipase (73-393) U/L TSH 3rd Generation (0.36-3.74) uIU/mL SARS-CoV-2 RNA (JED) NEGATIVE (NEGATIVE) 05/30/20 05/30/20 05/30/20 Range/Units 04:23 05:21 05:21 WBC 7.18 (4.0-11.0) K/uL RBC 5.06 (4.50-5.90) M/uL Hgb 16.4 (13.0-17.0) g/dL Hct 47.8 (38.0-50.0) % MCV 94.5 (80.0-98.0) fL MCH 32.4 H (27.0-32.0) pg MCHC 34.3 (31.0-37.0) g/dL RDW Std Deviation 43.5 (28.0-62.0) fl RDW Coeff of Michael 13 (11.0-15.0) % Plt Count 118 L (150-400) K/uL MPV 11.70 (7.40-12.00) fL Neut % (Auto) 65.2 (48.0-80.0) % Lymph % (Auto) 24.8 (16.0-40.0) % Benton % (Auto) 8.5 (0.0-15.0) % Eos % (Auto) 1.4 (0.0-7.0) % Baso % (Auto) 0.1 (0.0-1.5) % Neut # (Auto) 4.7 (1.4-5.7) K/uL Lymph # (Auto) 1.8 (0.6-2.4) K/uL Benton # (Auto) 0.6 (0.0-0.8) K/uL Eos # (Auto) 0.1 (0.0-0.7) K/uL Baso # (Auto) 0.0 (0.0-0.1) K/uL Nucleated RBC % 0.0 /100WBC Nucleated RBCs # 0 K/uL Lactate (0.20-2.00) mmol/L Sodium 136 (136-148) mmol/L Potassium 3.7 (3.5-5.1) mmol/L Chloride 100 (98-107) mmol/L Carbon Dioxide 27.4 (21.0-32.0) mmol/L BUN 8 (7.0-18.0) mg/dL Creatinine 1.0 (0.8-1.3) mg/dL Est Cr Clr Drug Dosing 109.65 mL/min Estimated GFR (MDRD) > 60.0 ml/min Glucose 84 (74-106) mg/dL POC Glucose 122 H (60-110) mg/dL Hemoglobin A1c (4.5-6.2) % Calcium 9.2 (8.5-10.1) mg/dL Phosphorus 2.8 (2.6-4.7) mg/dL Magnesium 1.9 (1.8-2.4) mg/dL Total Bilirubin 0.8 (0.2-1.0) mg/dL AST 44 H (15-37) IU/L ALT 76 H (14-63) IU/L Alkaline Phosphatase 150 H (46-116) U/L Total Protein 7.2 (6.4-8.2) g/dL Albumin 4.0 (3.4-5.0) g/dL Globulin 3.2 (2.6-4.0) g/dL Albumin/Globulin Ratio 1.3 (0.9-1.6) Triglycerides (0-200) mg/dL Cholesterol (50-200) mg/dL LDL Cholesterol, Calc (60-180) mg/dL VLDL Cholesterol (5-55) mg/dL HDL Cholesterol (40-60) mg/dL Cholesterol/HDL Ratio (3.3-6.0) Lipase 836 H (73-393) U/L TSH 3rd Generation (0.36-3.74) uIU/mL SARS-CoV-2 RNA (JED) (NEGATIVE) 05/30/20 05/30/20 05/30/20 Range/Units 05:21 05:21 09:28 WBC (4.0-11.0) K/uL RBC (4.50-5.90) M/uL Hgb (13.0-17.0) g/dL Hct (38.0-50.0) % MCV (80.0-98.0) fL MCH (27.0-32.0) pg MCHC (31.0-37.0) g/dL RDW Std Deviation (28.0-62.0) fl RDW Coeff of Michael (11.0-15.0) % Plt Count (150-400) K/uL MPV (7.40-12.00) fL Neut % (Auto) (48.0-80.0) % Lymph % (Auto) (16.0-40.0) % Benton % (Auto) (0.0-15.0) % Eos % (Auto) (0.0-7.0) % Baso % (Auto) (0.0-1.5) % Neut # (Auto) (1.4-5.7) K/uL Lymph # (Auto) (0.6-2.4) K/uL Benton # (Auto) (0.0-0.8) K/uL Eos # (Auto) (0.0-0.7) K/uL Baso # (Auto) (0.0-0.1) K/uL Nucleated RBC % /100WBC Nucleated RBCs # K/uL Lactate (0.20-2.00) mmol/L Sodium (136-148) mmol/L Potassium (3.5-5.1) mmol/L Chloride (98-107) mmol/L Carbon Dioxide (21.0-32.0) mmol/L BUN (7.0-18.0) mg/dL Creatinine (0.8-1.3) mg/dL Est Cr Clr Drug Dosing mL/min Estimated GFR (MDRD) ml/min Glucose (74-106) mg/dL POC Glucose 80 (60-110) mg/dL Hemoglobin A1c 5.0 (4.5-6.2) % Calcium (8.5-10.1) mg/dL Phosphorus (2.6-4.7) mg/dL Magnesium (1.8-2.4) mg/dL Total Bilirubin (0.2-1.0) mg/dL AST (15-37) IU/L ALT (14-63) IU/L Alkaline Phosphatase (46-116) U/L Total Protein (6.4-8.2) g/dL Albumin (3.4-5.0) g/dL Globulin (2.6-4.0) g/dL Albumin/Globulin Ratio (0.9-1.6) Triglycerides 129 (0-200) mg/dL Cholesterol 221 H (50-200) mg/dL LDL Cholesterol, Calc 109 (60-180) mg/dL VLDL Cholesterol 25 (5-55) mg/dL HDL Cholesterol 86 H (40-60) mg/dL Cholesterol/HDL Ratio 2.6 L (3.3-6.0) Lipase (73-393) U/L TSH 3rd Generation 5.89 H (0.36-3.74) uIU/mL SARS-CoV-2 RNA (JED) (NEGATIVE) Med Orders - Current: Current Medications Albuterol/Ipratropium (Duoneb 3.0-0.5 Mg/3 Ml) 3 ml NEB Q4HRRT PRN PRN Reason: Shortness Of Breath/wheezing Dextrose/Water (Dextrose 50% In Water) 50 ml IVPUSH ONETIME PRN PRN Reason: Hypoglycemia Last Admin: 05/30/20 03:52 Dose: 50 ml Documented by: Hydromorphone HCl (Dilaudid) 1 mg IVPUSH Q6H PRN PRN Reason: Pain Lactated Ringer's (Ringers, Lactated) 1,000 mls @ 125 mls/hr IV ASDIRECTED TAMIE Last Admin: 05/30/20 09:34 Dose: 125 mls/hr Documented by: Pantoprazole Sodium 40 mg/ (Sodium Chloride) 10 mls @ 300 mls/hr IV DAILY [facility] Last Admin: 05/30/20 09:04 Dose: 300 mls/hr Documented by: Ceftriaxone Sodium/Dextrose 1 (gm/ Premix) 50 mls @ 100 mls/hr IV Q24H TAMIE Last Admin: 05/30/20 09:04 Dose: 100 mls/hr Documented by: Ketorolac Tromethamine (Toradol) 10 mg PO Q6H PRN PRN Reason: Abdominal Pain Stop: 06/04/20 11:03 Ondansetron HCl (Zofran) 4 mg IVPUSH Q4H PRN PRN Reason: Nausea/Vomiting Last Admin: 05/30/20 09:40 Dose: 4 mg Documented by: Amphetamine/Dextroamphetamine [ Adderall] 5mg 1 each PO DAILY [facility] Sodium Chloride (Saline Flush) 10 ml FLUSH ASDIRECTED PRN PRN Reason: Keep Vein Open Last Admin: 05/29/20 14:55 Dose: 10 ml Documented by: Sodium Chloride (Saline Flush) 2.5 ml FLUSH ASDIRECTED PRN PRN Reason: Keep Vein Open Last Admin: 05/29/20 14:55 Dose: 2.5 ml Documented by: Discontinued Medications Al Hydroxide/Mg Hydroxide 15 ml/ Metoclopramide HCl 5 mg/Lidocaine HCl 5 ml 0 ml PO ONETIME ONE Stop: 05/29/20 14:18 Last Admin: 05/29/20 14:55 Dose: 25 each Documented by: Famotidine (Pepcid) 20 mg IVPUSH ONETIME ONE Stop: 05/29/20 14:19 Last Admin: 05/29/20 14:55 Dose: 20 mg Documented by: Hydromorphone HCl (Dilaudid) 1 mg IVPUSH ONETIME ONE Stop: 05/29/20 15:31 Last Admin: 05/29/20 16:08 Dose: 1 mg Documented by: Hydromorphone HCl (Dilaudid) 1 mg IVPUSH Q4H PRN PRN Reason: Pain Last Admin: 05/30/20 09:40 Dose: 1 mg Documented by: Sodium Chloride (Normal Saline) 1,000 mls @ 999 mls/hr IV STAT ONE Stop: 05/29/20 14:51 Last Admin: 05/29/20 14:54 Dose: 999 mls/hr Documented by: Ceftriaxone Sodium/Dextrose 1 (gm/ Premix) 50 mls @ 100 mls/hr IV ONETIME ONE Stop: 05/29/20 16:20 Last Admin: 05/29/20 16:08 Dose: 100 mls/hr Documented by: Sodium Chloride (Normal Saline) 1,000 mls @ 150 mls/hr IV STAT ONE Stop: 05/29/20 23:04 Last Admin: 05/29/20 17:29 Dose: 150 mls/hr Documented by: Ceftriaxone Sodium 1 gm/ (Sodium Chloride) 50 mls @ 100 mls/hr IV Q24H TAMIE Iodixanol (Visipaque) 100 ml IVPUSH ONETIME ONE Stop: 05/29/20 15:41 Last Admin: 05/29/20 15:42 Dose: 100 ml Documented by: Morphine Sulfate (Morphine) 2 mg IVPUSH Q4H PRN PRN Reason: Pain (severe 7-10) Stop: 05/30/20 17:57 Last Admin: 05/29/20 19:31 Dose: 2 mg Documented by:
[2020-05-31] MEDS ORDERED: AMPHETAMINE PO SCH (09:00)
[2020-05-31] MEDS ORDERED: DEXTROAMPHETAMINE PO SCH (09:00)
== END 2020-05-30 15:05 | disposition home or self-care (01) ==
LOC: MW.ED 13:38 → MW.MS 17:27
PROVIDERS: ADMIT Student in an Organized Health Care Education/Training Program; ATTEND Student in an Organized Health Care Education/Training Program
DX: K85.90 Acute pancreatitis without necrosis or infection, unspecified (principal); R74.01 Elevation of levels of liver transaminase levels; Z79.899 Other long term (current) drug therapy; Z20.828 Contact with and (suspected) exposure to other viral communicable diseases
CPT/HCPCS: 36415; 74177; 76705; 80053; 80061; 81001; 82962; 83036; 83605; 83690; 83735; 84100; 84443; 85025; 87086; 87635; 96361; 96365; 96366; 96375; 96376; 99285; A9270; C9113; G0378; J0696; J1170; J2270; J2405; J3490; J7030; J7120; Q9967; 99217; 99219; 99284; U0002